=== PATIENT | female | born 1950 | race Caucasian/White ===

== ENCOUNTER 2020-07-22 15:32 | Emergency (ER) | payer MEDICARE ==
[~2020-07-22] VITALS: Ht 172.7 cm; Wt 83.7 kg
--- NOTE | 2020-07-22 15:39 | NUR ---
[employer] network architect: EKG completed in triage
[2020-07-22 18:17] LABS: BASOPHILS % (AUTO) 1 % (0-1); EOSINOPHILS % (AUTO) 3 % (1-7); LYMPHOCYTES % (AUTO) 34 % (22-44); MEAN CORPUSCULAR HEMOGLOBIN 29.5 pg (27.0-34.8); MEAN CORPUSCULAR HGB CONC 33.1 g/dL (32.4-35.8); MEAN PLATELET VOLUME 8.9 fL (7.4-10.4); MONOCYTES % (AUTO) 10 % (2-9); NEUTROPHILS % (AUTO) 52 % (42-75); PLATELET COUNT 286 x10^3/uL (130-400); RED BLOOD COUNT 4.66 x10^6/uL (3.82-5.3); RED CELL DISTRIBUTION WIDTH 13.9 % (9.6-15.2)
[2020-07-22 18:29] LABS: ALBUMIN 3.7 g/dL (3.4-5.0); ANION GAP 6 mmol/L (5-15); CALCIUM 8.9 mg/dL (8.5-10.1); CHLORIDE 110 mmol/L (98-107); CREATININE 0.92 mg/dL (0.55-1.02)
[2020-07-22 18:56] LABS: MD NO
--- NOTE | 2020-07-22 19:52 | NUR ---
PT COMES IN C/O INCREASED SLURRED SPEECH, CHOKING ON FOOD AND DROOLING. PT STATES HER SPEECH HAS BEEN SLURRED FOR APPROX 5 YEARS BUT HAS RECENTLY GOTTEN WORSE. PT STATES SHE WAS SEEN BY A [employer] PROVIDER TODAY WHO INSTRUCTED HER TO COME TO THE ED. PT STATES THE [facility] PROVIDER ([employer]) ([facility]) SAID SHE WOULD CALL OR FAX RECOMMENDED ORDERS. MONITORS CONNECTED. PT STATES NO PAIN AT THIS TIME. CALL LIGHT W/IN REACH
--- NOTE | 2020-07-22 21:01 | NUR ---
PT RESTING ON GURNEY. STATES NO PAIN AT THIS TIME. CALL LIGHT W/IN REACH. NAD
--- NOTE | 2020-07-22 22:09 | NUR ---
pt in bed with no signs or symptoms of acute distress noted respirations even and unlabored denies pain or need at this time. pending mri. iv site without symptoms. pt on radiation monitor.
[2020-07-22] MEDS ORDERED: GADOTERATE 7.5 MMOL/15 ML VIAL ONE (22:41)
--- NOTE | 2020-07-22 23:29 | NUR ---
pt in bed with no signs or symptoms of acute distress noted respirations even and unlabored denies pain or discomfort at this time, states she feels ready to go home.
[2020-07-22 23:30] VITALS: BP 170/93
== END 2020-07-22 23:45 | disposition home or self-care (01) ==
LOC: ED 21:40
DX: R47.1 Dysarthria and anarthria (principal); J18.1 Lobar pneumonia, unspecified organism; R00.0 Tachycardia, unspecified; R51.9 Headache, unspecified; R06.89 Other abnormalities of breathing
CPT/HCPCS: 36415; 70450; 70553; 71045; 80048; 82040; 85025; 93005; 99285; A9575

== ENCOUNTER 2021-03-20 11:22 | Outpatient (CLI) | payer MEDICARE | END 2021-03-20 23:59 | disposition home or self-care (01) | LOC: CFH 11:22 | PROVIDERS: ATTEND Physician Assistant | DX: Z12.31 Encounter for screening mammogram for malignant neoplasm of breast (principal); M85.88 Other specified disorders of bone density and structure, other site; N95.8 Other specified menopausal and perimenopausal disorders ==